=== PATIENT | female | born 1965 | race Caucasian/White ===

== ENCOUNTER 2016-12-10 22:02 | Emergency (ER) | payer OTHER ==
[~2016-12-10] VITALS: Ht 180.3 cm; Wt 126.7 kg
[2016-12-10 22:06] VITALS: BP 146/90; PULSE 68; RESP 20; TEMP 97.7; O2SAT 96
[2016-12-11 00:22] VITALS: BP 131/77; PULSE 75; RESP 18; O2SAT 97
--- NOTE | 2016-12-11 00:29 | PD ---
HPI Chief Complaint: Injury Time Seen by Provider: 23:52 Travel History International Travel<30 days: No Contact w/Intl Traveler<30days: No Traveled to known affect area: No History of Present Illness HPI The patient is a 51-year-old female that fell onto a guard rail last night when she tripped and hit her left anterior ribs. She complains of anterior rib pain. She denies any shortness of breath or hemoptysis. The patient lives in [place]. [facility] Past Medical History Medical History: Denies Significant Hx Tetanus Vaccination: < 5 Years Influenza Vaccination: Yes ?: Not Menopausal: Yes : 4 Para: 4 Tubal Ligation: Yes Social History Alcohol Use: Yes ("OCCASIONALLY") Tobacco Use: No (QUIT AGE 46) Substance Use: No Allergies-Medications (Allergen,Severity, Reaction): Coded Allergies: No Known Allergies (Unverified , 12/10/16) Reported Meds & Prescriptions Reported Meds & Active Scripts Active No Active Prescriptions or Reported Medications Review of Systems Except as stated in HPI: all other systems reviewed are Neg Physical Exam Narrative GENERAL: The patient is alert, oriented 3 in moderate apparent distress with her left rib pain. Her vital signs show blood pressure 146/90 but are otherwise normal. SKIN: Focused skin assessment warm/dry. HEAD: Atraumatic. Normocephalic. EYES: Pupils equal and round. No scleral icterus. No injection or drainage. ENT: No nasal bleeding or discharge. Mucous membranes pink and moist. NECK: Trachea midline. No JVD. CARDIOVASCULAR: Regular rate and rhythm. No murmur appreciated. RESPIRATORY: No accessory muscle use. Clear to auscultation. Breath sounds equal bilaterally. There is tenderness on the left lateral ribs without any bony nor air crepitus noted. No flail is noted. GASTROINTESTINAL: Abdomen soft, nontender, nondistended. Hepatic and splenic margins not palpable. MUSCULOSKELETAL: No obvious deformities. No clubbing. No cyanosis. No edema. NEUROLOGICAL: Awake and alert. No obvious cranial nerve deficits. Motor grossly within normal limits. Normal speech. PSYCHIATRIC: Appropriate mood and affect; insight and judgment normal. Data Data Last Documented VS Vital Signs Date Time Temp Pulse Resp B/P (MAP) Pulse Ox O2 Delivery O2 Flow Rate FiO2 12/11/16 00:22 75 18 131/77 (95) 97 Room Air 12/10/16 22:06 97.7 Orders Orders Ribs, Uni (W/Exp Cxr-Min 3vw) (12/10/16 ) MDM Medical Decision Making Medical Screen Exam Complete: Yes Emergency Medical Condition: Yes Medical Record Reviewed: Yes Interpretation(s) The patient has minimally displaced left rib fractures involving the lateral aspect of the fifth, sixth and seventh ribs. Differential Diagnosis Fractured ribs, pulmonary contusion, contusion chest wall, pneumothorax, hemothorax Narrative Course The patient has fractured ribs. There is no associated pneumothorax or hemothorax. Diagnosis Primary Impression: Fracture of ribs, three, closed Additional Instructions: As we discussed, follow-up with your primary care physician. Cough and deep breathe as this cleans her lungs out. If you get a fever, make sure you get checked again because this may mean a pneumonia. Med/Other Pt SpecificInfo: Prescription(s) given Scripts Oxycodone-Acetaminophen (Percocet) 10-325 mg Tab 1 TAB PO Q4H Y for PAIN, #30 TAB 0 Refills Prov: Manuel Melendrez MD 12/11/16 Disposition: 01 DISCHARGE HOME Condition: Stable Manuel Melendrez MD Dec 11, 2016 00:29
--- NOTE | 2016-12-11 00:52 | RADRPT ---
EXAM DATE/TIME: 12/11/2016 00:10 [facility] COMPARISON: No previous studies available for comparison. INDICATIONS : Left anterior rib pain after aptient fell over fence yesterday MEDICAL HISTORY : None. SURGICAL HISTORY : None. ENCOUNTER: Initial ACUITY: 1 day PAIN SCORE: 9/10 LOCATION: Left anterior ribs FINDINGS: There are minimally displaced fractures involving the lateral aspect of the left fifth sixth and alexandra nth ribs. There is no evidence of hemothorax or pneumothorax. May be minimal contusion at the lateral left lung base versus slight atelectasis. Cardiac contours are satisfactory. CONCLUSION: Minimally displaced left rib fractures. Efraín Otero MD on December 11, 2016 at 0:48 Board Certified Radiologist. This report was verified electronically.
[2016-12-11] MEDS ORDERED: PERC10TA27 PO (01:10)
[2016-12-11] MEDS ORDERED: oxyCODONE/ACETAMINOPHEN 10 MG/325 MG TAB PO ONE (01:15)
== END 2016-12-11 01:24 | disposition home or self-care (01) ==
LOC: PHED 22:02
DX: S22.42XA Multiple fractures of ribs, left side, initial encounter for closed fracture (principal); W01.198A Fall on same level from slipping, tripping and stumbling with subsequent striking against other object, initial encounter
CPT/HCPCS: 71101; 99283